=== PATIENT | female | born 1985 | race African-American/Black ===

== ENCOUNTER 2018-02-18 16:43 | Emergency (ER) | payer OTHER ==
[~2018-02-18] VITALS: Ht 162.6 cm; Wt 44.9 kg
[2018-02-18 17:21] VITALS: BP 126/77
[2018-02-18] MEDS ORDERED: Bacitracin Oint UD TOPIC ONE (17:30)
--- NOTE | 2018-02-18 17:38 | Emergency Room Report ---
History of Present Illness General Chief Complaint: Laceration Source: Patient Present Illness HPI 32-year-old female presents to the emergency department complaining of 6 out of 10 in severity occipital scalp tenderness, hematoma and laceration. Patient reports that earlier today she slipped and fell in the bathroom and hit her head on the sink. Patient denies loss of consciousness she reports immediately after she had dizziness for which she states less than 2 seconds per patient denies visual changes, nausea, vomiting, imbalance, dysarthria. Patient denies taking blood thinning medication she states that she was approximately one month ago times one year she had a heart surgery performed. Patient reports that she is on Plaquenil. She denies being up-to-date with her tetanus vaccination as she reports she has significant allergy to that vaccination. Patient denies midline neck or back pain. She reports mechanical slip and fall she denies dizziness, chest pain or palpitations prior to fall. denies paresthesias. Allergies: Coded Allergies: TETANUS VACCINES AND TOXOID (Verified Allergy, Unknown, 02/18/18) Patient History Past Medical History: see triage record, other - hx of heart surgery Past Surgical History: other - heart surgery Pertinent Family History: none Last Menstrual Period: 02/11/2018 Now: No Reviewed Nursing Documentation: PMH: Agreed; PSxH: Agreed Nursing Documentation-PMH Past Medical History: No History, Except For Review of Systems All Other Systems: negative except mentioned in HPI Physical Exam Vital Signs Date Time Temp Pulse Resp B/P (MAP) Pulse Ox O2 Delivery O2 Flow Rate FiO2 02/18/18 16:52 98.1 87 19 126/77 100 Room Air Sp02 EP Interpretation: reviewed, normal General Appearance: well appearing, no apparent distress, alert, GCS 15, non- toxic Head: normocephalic, other - occipital hematoma 2.5 cm on right side. small laceration currently not bleeding. -somewhat superficial. Eyes: bilateral eye normal inspection, bilateral eye PERRL, bilateral eye EOMI ENT: hearing grossly normal, normal voice Neck: full range of motion, no bony tend Respiratory: lungs clear, normal breath sounds, speaking full sentences Cardiovascular #1: regular rate, rhythm Musculoskeletal: back normal, gait/station normal, normal range of motion, tender - TTP only to posterior head. Neurologic: alert, oriented x3, responsive, motor strength/tone normal, sensory intact, normal gait, speech normal, no pronator, grossly normal Psychiatric: judgement/insight normal Skin: normal color, no rash, warm/dry, well hydrated, laceration - 0.3cm occipital scalp laceration and posterior head contusion, Lymphatic: no adenopathy Procedures Laceration/Wound Repair Laceration/Wound Repair : Consent: Verbal Wound Location: head Wound's Depth, Shape: superficial Wound Length (cm): 1 Wound Explored: clean Betadine Prep?: No Wound Repaired With: Dermabond Layer Closure?: No Sterile Dressing Applied?: Yes Splint Applied?: No Sling Applied?: No Patient Tolerated: Well Complications: None Medical Decision Making PA Attestation Dr. vides is my supervising Physician whom patient management has been discussed with. Diagnostic Impression: Primary Impression: Occipital scalp laceration Qualified Codes: S01.01XA - Laceration without foreign body of scalp, initial encounter Additional Impressions: Head injury, acute, without loss of consciousness Qualified Codes: S09.90XA - Unspecified injury of head, initial encounter Mild concussion Qualified Codes: S06.0X0A - Concussion without loss of consciousness, initial encounter ER Course 32-year-old female presents to the emergency department complaining of 6 out of 10 in severity occipital scalp tenderness, hematoma and laceration. Patient reports that earlier today she slipped and fell in the bathroom and hit her head on the sink. Patient denies loss of consciousness she reports immediately after she had dizziness for which she states less than 2 seconds per patient denies visual changes, nausea, vomiting, imbalance, dysarthria. Patient denies taking blood thinning medication she states that she was approximately one month ago times one year she had a heart surgery performed. Patient reports that she is on Plaquenil. She denies being up-to-date with her tetanus vaccination as she reports she has significant allergy to that vaccination. Patient denies midline neck or back pain. She reports mechanical slip and fall she denies dizziness, chest pain or palpitations prior to fall. denies paresthesias. Ddx considered but are not limited to Fracture, dislocation, contusion, concussion Sprain/Strain/Spasm, hematoma, subdural hematoma, ICH just to name a few. Vital signs: are WNL, pt. is afebrile H&PE are most consistent with 0.3cm occipital scalp laceration and posterior head contusion, no evidence of focal neurological deficit, no loss of consciousness. however due to moderate sized hematoma and reports of some initial dizziness post fall pt. symptoms are consistent with those also of a mild concussion. ORDERS: none required at this time. PE and HPI do not indicate CT at this time this was also the primary choice of pt. ED INTERVENTIONS: -Denies Pain medication - Wound cleaning and irrigation. no fb's visualized. well approximated for the most part, no bleeding at this time. Dermabond applied . Patient tolerated well. -D/w Pt. reasoning for not doing Head CT, also discussed red flag symptoms to keep an eye out for that would indicate prompt return to the ED. - Pt. and responsible alliance party verbalize their understanding and agreement with proposed treatment plan. DISCHARGE: At this time pt. is stable for d/c to home. Will provide printed patient care instructions, and any necessary prescriptions. Care plan and follow up instructions have been discussed with the patient prior to discharge. Last Vital Signs Date Time Temp Pulse Resp B/P (MAP) Pulse Ox O2 Delivery O2 Flow Rate FiO2 02/18/18 17:21 98.1 70 19 126/77 100 Room Air Disposition: HOME, SELF-CARE Condition: Stable Scripts Bacitracin/Polymyxin B Sulfate (BACITRACIN-POLYMYXIN OINTMENT) 28.35 Gm Oint...g. 1 APPLIC TP BID, #28.3 GM Prov: Audrey James 02/18/18 Acetaminophen* (TYLENOL EXTRA STRENGTH*) 500 Mg Tablet 500 MG ORAL Q6H, #20 TAB 0 Refills Prov: Audrey James 02/18/18 Departure Forms: Return to Work Return to Work Date: Feb 21, 2018 Work Restrictions: None Other Restrictions: May return sooner if symptoms resolve. Return to Full Activity: Feb 24, 2018 Patient Instructions: Concussion, Adult, [id number], Head Injury, Adult, Easy -to-Read, Nonsutured Laceration Care Additional Instructions: Take medications as directed. !!! Return immediately to the emergency department with symptoms of vomiting, confusion, worsening or acute headache, slurred speech or visual changes. Please avoid Advil, ibuprofen, Motrin, naproxen and Excedrin for the next week. Tylenol only for pain. Follow up with a Primary Care Provider in 3-5 days, even if your symptoms have resolved. --Please review list of primary care clinics, if you do not already have a primary care provider Return sooner to ED if new symptoms occur, or current symptoms become worse. - Please note that this Emergency Department Report was dictated using [employer] operator technology software, occasionally this can lead to erroneous entry secondary to interpretation by the dictation equipment. Audrey James Feb 18, 2018 17:38
[2018-02-18] MEDS ORDERED: BACITRACIN-P28.35 GM TP (17:39)
[2018-02-18] MEDS ORDERED: TYLENOL EXTRA500 MG ORAL (17:39)
[2018-02-18 17:45] VITALS: BP_SYST 124; BP_SYST 126; BP_DIAS 77; BP_DIAS 80
== END 2018-02-18 17:45 | disposition home or self-care (01) ==
LOC: EMR 17:30
DX: S01.01XA Laceration without foreign body of scalp, initial encounter (principal); S09.90XA Unspecified injury of head, initial encounter; S06.0X0A Concussion without loss of consciousness, initial encounter; W01.0XXA Fall on same level from slipping, tripping and stumbling without subsequent striking against object, initial encounter; Y92.002 Bathroom of unspecified non-institutional (private) residence as the place of occurrence of the external cause; Z88.7 Allergy status to serum and vaccine
CPT/HCPCS: 12001; 99283; Z7502